=== PATIENT | male | born 1960 | race Caucasian/White ===

== ENCOUNTER 2017-09-02 13:05 | Emergency (ER) | payer OTHER ==
[2017-09-02] MEDS ORDERED: NORMAL SALINE 1000 ML 1,000 ML IV ONE (14:02)
--- NOTE | 2017-09-02 14:04 | ER Document Report ---
ED Medical Screen (RME) - General Chief Complaint: Difficulty Swallowing Stated Complaint: VOMITING Time Seen by Provider: 09/02/17 13:57 Notes: RAPID MEDICAL EVALUATION DISCLOSURE I have seen this patient as part of a Rapid Medical Evaluation and, if applicable, placed any initially appropriate orders. The patient will be seen and fully evaluated, including a full history and physical exam, by a provider ( in Main ED or Fast Track) when a room becomes available. 57-year-old male PMH throat cancer on chemotherapy every Sunday and radiation every Sunday through Sunday here with complaints of severe nausea and excessive mucus at his trach and in his mouth. He does not have any shortness of breath or chest pain or any other symptoms. He has been using Compazine and Zofran for his nausea but is unable to eat or drink anything due to the nausea and feels he may be dehydrated. EXAM Tracheostomy visualized CTAB RRR TRAVEL OUTSIDE OF THE [place] IN LAST 30 DAYS: No - Related Data Allergies/Adverse Reactions: No Known Allergies Allergy (Unverified 09/02/17 13:06) Physical Exam - Vital signs Vitals: Temp Pulse Resp BP Pulse Ox 98.7 F 70 22 H 108/58 L 97 09/02/17 13:11 09/02/17 13:11 09/02/17 13:11 09/02/17 13:11 09/02/17 13:11 Course - Vital Signs Vital signs: Temp Pulse Resp BP Pulse Ox 98.7 F 70 22 H 108/58 L 97 09/02/17 13:11 09/02/17 13:11 09/02/17 13:11 09/02/17 13:11 09/02/17 13:11
[2017-09-02] MEDS ORDERED: NORMAL SALINE 1000 ML 1,000 ML IV PRN (15:12)
[2017-09-02 15:49] LABS: HEMATOCRIT 38.7 % (37.9-51.0); HEMOGLOBIN 13.3 g/dL (13.5-17.0); MEAN CORPUSCULAR HEMOGLOBIN 29.7 pg (27.0-33.4); MEAN CORPUSCULAR HGB CONC 34.3 g/dL (32.0-36.0); MEAN CORPUSCULAR VOLUME 87 fl (80-97); PLATELET COUNT 174 10^3/uL (150-450); RED BLOOD COUNT 4.47 10^6/uL (4.35-5.55); WHITE BLOOD COUNT 5.8 10^3/uL (4.0-10.5)
--- NOTE | 2017-09-02 15:54 | RADIOLOGY REPORT (SQ) ---
EXAM DESCRIPTION: KUB/ABDOMEN (SINGLE VIEW) COMPLETED DATE/TIME: 09/02/2017 3:45 pm REASON FOR STUDY: Abdominal pain COMPARISON: None. NUMBER OF VIEWS: One view. TECHNIQUE: Supine radiographic image of the abdomen acquired. LIMITATIONS: None. FINDINGS: BOWEL GAS PATTERN: Normal bowel gas pattern. No dilated loops. CALCIFICATIONS: No suspicious calcifications. SOFT TISSUES: No gross mass or suggestion of organomegaly. HARDWARE: Gastrostomy tube. BONES: No acute fracture. No worrisome bone lesions. OTHER: No other significant finding. IMPRESSION: NO RADIOGRAPHIC EVIDENCE FOR ACUTE ABDOMINAL DISEASE. TECHNICAL DOCUMENTATION: JOB ID: [id number] [employer]- All Rights Reserved Reading location - IP/workstation name: [email or web address]
[2017-09-02 15:57] LABS: ALANINE AMINOTRANSFERASE 37 U/L (21-72); ALBUMIN 3.9 g/dL (3.5-5.0); ALKALINE PHOSPHATASE 96 U/L (38-126); ANION GAP 11 (5-19); ASPARTATE AMINO TRANSFERASE 24 U/L (17-59); BILIRUBIN,DIRECT 0.2 mg/dL (0.0-0.4); BILIRUBIN,TOTAL 0.3 mg/dL (0.2-1.3); BLOOD UREA NITROGEN 22 mg/dL (7-20); CALCIUM 9.2 mg/dL (8.4-10.2); CARBON DIOXIDE 29 mmol/L (22-30); CHLORIDE 98 mmol/L (98-107); GLUCOSE 113 mg/dL (75-110); PHOSPHORUS 4.4 mg/dL (2.5-4.5); POTASSIUM 4.4 mmol/L (3.6-5.0); SODIUM 138.2 mmol/L (137-145); TOTAL PROTEIN 6.6 g/dL (6.3-8.2)
[2017-09-02 16:13] LABS: ABSOLUTE LYMPHOCYTES# (MANUAL) 0.2 10^3/uL (0.5-4.7); ABSOLUTE MONOCYTES # (MANUAL) 0.3 10^3/uL (0.1-1.4); ABSOLUTE NEUTROPHILS# (MANUAL) 5.2 10^3/uL (1.7-8.2); BASOPHILS % (MANUAL) 0 % (0-2); EOSINOPHILS % (MANUAL) 0 % (0-6); LYMPHOCYTES % (MANUAL) 4 % (13-45); MONOCYTES % (MANUAL) 6 % (3-13); SEGMENTED NEUTROPHILS % (MAN) 90 % (42-78); TOTAL CELLS COUNTED 100
[2017-09-02 16:14] LABS: PLATELET COMMENT ADEQUATE; RBC MORPHOLOGY COMMENT NORMO-CYTIC/CHROMIC
[2017-09-02] MEDS ORDERED: LACTULOSE SYRUP 20 GM/30 ML UDCUP PO ONE (18:40)
--- NOTE | 2017-09-02 18:41 | ER Document Report ---
ED General - General TRAVEL OUTSIDE OF THE [place] IN LAST 30 DAYS: No <JAVI JAFFE - Last Filed: 09/02/17 18:36> <ROBEL BLAKE Soni - Last Filed: 09/02/17 19:35> - General Chief Complaint: Difficulty Swallowing Stated Complaint: VOMITING Time Seen by Provider: 09/02/17 13:57 Notes: Chief complaint: Dehydrated feeling weak History of complain:( obtained from----patient)57-year-old male PMH throat cancer on chemotherapy every Sunday and radiation every Sunday through Sunday here with complaints of severe nausea and excessive mucus at his trach and in his mouth. He does not have any shortness of breath or chest pain or any other symptoms. He has been using Compazine and Zofran for his nausea but is unable to eat or drink anything due to the nausea and feels he may be dehydrated. He has a feeding tube, whenever he feeds himself he feels nauseous. Denies any diarrhea. Denies any fever chills or other constitutional symptoms Onset: Gradual Duration: Continuous Severity: Moderate Quality: Dull Context: Throat cancer, status post chemo and radiation treatment Exacerbating factor and relieving factors: REVIEW OF SYSTEMS: CONSTITUTIONAL : Denies fever, chills, or sweats. Denies recent illness. EENT: As per history of complain g. CARDIOVASCULAR: Denies chest pain. Denies palpitations or racing or irregular heart beat. Denies ankle edema. RESPIRATORY: Denies cough, cold, or chest congestion. Denies shortness of breath, difficulty breathing, or wheezing. GASTROINTESTINAL: Denies distention. Denies nausea, vomiting, or diarrhea. Denies blood in vomitus, stools, or per rectum. Denies black, tarry stools. Denies constipation. GENITOURINARY: Denies difficulty urinating, painful urination, burning, frequency, blood in urine, or discharge. FEMALE GENITOURINARY: Denies vaginal bleeding, heavy or abnormal periods, irregular periods. Denies vaginal discharge or odor. MUSCULOSKELETAL: Denies back or neck pain or stiffness. Denies joint pain or swelling. SKIN: Denies rash, lesions or sores. HEMATOLOGIC : Denies easy bruising or bleeding. LYMPHATIC: Denies swollen, enlarged glands. NEUROLOGICAL: Denies confusion or altered mental status. Denies passing out or loss of consciousness. Denies dizziness or lightheadedness. Denies headache. Denies weakness or paralysis or loss of use of either side. Denies problems with gait or speech. Denies sensory loss, numbness, or tingling. Denies seizures. PSYCHIATRIC: Denies anxiety or stress. Denies depression, suicidal ideation, or homicidal ideation. ALL OTHER SYSTEMS REVIEWED AND NEGATIVE. PHYSICAL EXAMINATION: GENERAL: Well-appearing, well-nourished and in no acute distress. HEAD: Atraumatic, normocephalic. EYES: Pupils equal round and reactive to light, extraocular movements intact, conjunctiva are normal. ENT: Oropharynx-tongue discolored greenish in color. Secretion appears to be normal. No erythema noted.. Moist mucous membranes. NECK: Tracheostomy tube in place LUNGS: Breath sounds clear to auscultation bilaterally and equal. No wheezes rales or rhonchi. HEART: Regular rate and rhythm without murmurs ABDOMEN: Soft, nontender, nondistended abdomen. No guarding, no rebound. No masses appreciated. Examination of genitals-deferred Musculoskeletal: Normal range of motion, no pitting or edema. No cyanosis. NEUROLOGICAL: Cranial nerves grossly intact. Normal speech, normal gait. Normal sensory, motor exams PSYCH: Normal mood, normal affect. SKIN: Warm, Dry, normal turgor, no rashes or lesions noted. Dictation was performed using [employer] voice recognition software (JAVI JAFFE) - [facility] Notes: Dictated (JAVI JAFFE) - Related Data Allergies/Adverse Reactions: No Known Allergies Allergy (Unverified 09/02/17 13:06) Past Medical History - General Information source: Patient - Social History Smoking Status: Unknown if Ever Smoked Chew tobacco use (# tins/day): No Frequency of alcohol use: None Drug Abuse: None Patient has suicidal ideation: No Patient has homicidal ideation: No - Past Medical History Cardiac Medical History: Reports: Hx Hypertension Renal/ Medical History: Denies: Hx Peritoneal Dialysis Past Surgical History: Reports: Hx Abdominal Surgery - gtube <JAVI JAFFE - Last Filed: 09/02/17 18:36> - Social History Family History: None <ROBEL BLAKE - Last Filed: 09/02/17 19:35> - Medical History Notes: Dictated (JAVI JAFFE) Review of Systems <JAVI JAFFE - Last Filed: 09/02/17 18:36> <ROBEL BLAKE - Last Filed: 09/02/17 19:35> - Review of Systems Notes: Dictated (JAVI JAFFE) Physical Exam <JAVI JAFFE - Last Filed: 09/02/17 18:36> <ROBEL BLAKE - Last Filed: 09/02/17 19:35> - Vital signs Vitals: Temp Pulse Resp BP Pulse Ox 98.7 F 70 22 H 108/58 L 97 09/02/17 13:11 09/02/17 13:11 09/02/17 13:11 09/02/17 13:11 09/02/17 13:11 - Notes Notes: Dictated (JAVI JAFFE) Course - Laboratory Result Diagrams: 09/02/17 15:28 09/02/17 15:28 - Diagnostic Test Radiology reviewed: Reports reviewed - Abdominal x-ray reported by radiologist as no acute pathology but has large amount of fecal material <JAVI JAFFE - Last Filed: 09/02/17 18:36> - Laboratory Result Diagrams: 09/02/17 15:28 09/02/17 15:28 <ROBEL BLAKE - Last Filed: 09/02/17 19:35> - Re-evaluation Re-evalutation: 09/02/17 18:40 Given IV normal saline (JAVI JAFFE) 09/02/17 19:34 Pt requesting viscous lidocaine due to his painful swallowing from his throat cancer. Wrote him a prescription. (ROBEL BLAKE) - Vital Signs Vital signs: Temp Pulse Resp BP Pulse Ox 98.7 F 70 22 H 108/58 L 97 09/02/17 13:11 09/02/17 13:11 09/02/17 13:11 09/02/17 13:11 09/02/17 13:11 - Laboratory Laboratory results interpreted by me: 09/02/17 09/02/17 15:28 15:28 Hgb 13.3 L Seg Neuts % (Manual) 90 H Lymphocytes % (Manual) 4 L Abs Lymphs (Manual) 0.2 L BUN 22 H Glucose 113 H Discharge <JAVI JAFFE - Last Filed: 09/02/17 18:36> <ROBEL BLAKE - Last Filed: 09/02/17 19:35> - Discharge Clinical Impression: Dehydration Nausea & vomiting Qualifiers: Vomiting type: unspecified Vomiting Intractability: unspecified Qualified Code( s): R11.2 - Nausea with vomiting, unspecified Retained feces Qualifiers: Constipation type: slow transit constipation Qualified Code(s): K59.01 - Slow transit constipation Condition: Fair Disposition: HOME, SELF-CARE Instructions: Antinausea Medication ([facility]), Dehydration ([facility]) Prescriptions: Lactulose 10 gm PEG BID #120 ml Lidocaine HCl [Lidocaine HCl Viscous] 15 ml MM Q8H PRN #100 ml PRN Reason:
[2017-09-02] MEDS ORDERED: LIDOCAINE 2% VISCOUS SOLN 20 ML UDCUP PO ONE (19:43)
[2017-09-02 20:21] VITALS: BP 148/76
== END 2017-09-02 20:05 | disposition home or self-care (01) ==
LOC: ER 13:05
DX: E86.0 Dehydration (principal); R53.83 Other fatigue; R11.2 Nausea with vomiting, unspecified; K59.01 Slow transit constipation; I10 Essential (primary) hypertension; C14.0 Malignant neoplasm of pharynx, unspecified; Z79.899 Other long term (current) drug therapy
CPT/HCPCS: 99284; 96360; 96361; 36415; 83735; 84100; 85025; 80053; 74018; J3490; J7030

== ENCOUNTER 2017-09-15 18:56 | Emergency (ER) | payer MEDICAID, OTHER ==
[2017-09-15] MEDS ORDERED: NORMAL SALINE 1000 ML 1,000 ML IV ONE (19:47)
--- NOTE | 2017-09-15 19:51 | ER Document Report ---
ED General - General Chief Complaint: Nausea/Vomiting Stated Complaint: VOMITING/DEHYDRATED Time Seen by Provider: 09/15/17 19:42 Mode of Arrival: Ambulatory Information source: Patient Notes: 57-year-old male with a history of stage IV throat cancer presents the emergency department with complaints of dehydration. Patient states that he is currently undergoing chemo and radiation at [facility] [place]. He states that he has a prescription for Zofran but it is not helping. He has been having nausea and vomiting over the last couple of days. Patient feels like he is losing too much fluid. Patient denies any diarrhea, constipation, chest pain, shortness of breath, dysuria, hematuria. Patient does have a G-tube in place. Patient states that he has been giving himself feedings but it has been coming back up. TRAVEL OUTSIDE OF THE [place] IN LAST 30 DAYS: No - HPI Patient complains to provider of: Nausea, vomiting Onset: Last week Onset/Duration: Persistent Quality of pain: No pain Severity: None Pain Level: Denies Associated symptoms: Nausea, Vomiting Exacerbated by: Denies Relieved by: Denies Similar symptoms previously: Yes Recently seen / treated by doctor: No - Related Data Allergies/Adverse Reactions: No Known Allergies Allergy (Verified 09/15/17 18:57) Past Medical History - General Information source: Patient - Social History Smoking Status: Never Smoker Family History: None, Reviewed & Not Pertinent Patient has suicidal ideation: No Patient has homicidal ideation: No - Past Medical History Cardiac Medical History: Reports: Hx Hypertension Renal/ Medical History: Denies: Hx Peritoneal Dialysis Past Surgical History: Reports: Hx Abdominal Surgery - gtube Review of Systems - Review of Systems Constitutional: Weakness. denies: Fever, Malaise EENT: No symptoms reported Cardiovascular: No symptoms reported Respiratory: No symptoms reported Gastrointestinal: Nausea, Vomiting, Poor fluid intake. denies: Abdomen distended, Abdominal pain, Diarrhea, Constipation, Blood in vomit, Black stools , Rectal bleeding Genitourinary: No symptoms reported Male Genitourinary: No symptoms reported Musculoskeletal: No symptoms reported Skin: No symptoms reported Neurological/Psychological: No symptoms reported -: Yes All other systems reviewed and negative Physical Exam - Vital signs Vitals: Temp Resp BP 98.3 F 22 H 116/69 09/15/17 19:01 09/15/17 19:01 09/15/17 19:01 Interpretation: Normal - Notes Notes: PHYSICAL EXAMINATION: GENERAL: Well-appearing, well-nourished and in no acute distress. HEAD: Atraumatic, normocephalic. EYES: Pupils equal round and reactive to light, extraocular movements intact, sclera anicteric, conjunctiva are normal. ENT: Nares patent, oropharynx clear without exudates. Moist mucous membranes. Trach in place. NECK: Normal range of motion, supple without lymphadenopathy LUNGS: Breath sounds clear to auscultation bilaterally and equal. No wheezes rales or rhonchi. HEART: Regular rate and rhythm without murmurs ABDOMEN: Soft, nontender, nondistended abdomen. G-tube in place. No signs of infection. No guarding, no rebound. No masses appreciated. Musculoskeletal: Normal range of motion, no pitting or edema. No cyanosis. NEUROLOGICAL: Cranial nerves grossly intact. Normal speech, normal gait. Normal sensory, motor exams PSYCH: Normal mood, normal affect. SKIN: Warm, Dry, normal turgor, no rashes or lesions noted. Course - Re-evaluation Re-evalutation: 09/15/17 21:38 Labs obtained and are within normal limits. Vitals stable. On re-evaluation, patient continues to deny nausea/vomiting. Says feels fine but is concerned about his recent weight loss. I instructed patient to continue his G-tube feeds as directed, to discuss weight loss with his oncologist on Sunday during his appointment, and to return for fever or worsening symptoms. Patient is agreeable with the plan of care. - Vital Signs Vital signs: Temp Pulse Resp BP Pulse Ox 98.3 F 16 123/65 97 09/15/17 19:01 09/15/17 20:03 09/15/17 20:03 09/15/17 20:03 - Laboratory Result Diagrams: 09/15/17 19:20 09/15/17 19:20 Laboratory results interpreted by me: 09/15/17 09/15/17 19:20 19:20 RBC 4.34 L Hgb 12.8 L Hct 37.2 L Seg Neuts % (Manual) 86 H Band Neutrophils % 1 L Lymphocytes % (Manual) 3 L Abs Lymphs (Manual) 0.1 L Chloride 96 L Glucose 127 H Discharge - Discharge Clinical Impression: Nausea & vomiting Qualifiers: Vomiting type: unspecified Vomiting Intractability: non-intractable Qualified Code(s): R11.2 - Nausea with vomiting, unspecified Condition: Stable Disposition: HOME, SELF-CARE Instructions: Vomiting ([facility])
[2017-09-15 20:35] LABS: ALANINE AMINOTRANSFERASE 35 U/L (21-72); ALBUMIN 3.9 g/dL (3.5-5.0); ALKALINE PHOSPHATASE 78 U/L (38-126); ANION GAP 15 (5-19); ASPARTATE AMINO TRANSFERASE 23 U/L (17-59); BILIRUBIN,DIRECT 0.4 mg/dL (0.0-0.4); BILIRUBIN,TOTAL 0.4 mg/dL (0.2-1.3); BLOOD UREA NITROGEN 20 mg/dL (7-20); CALCIUM 9.4 mg/dL (8.4-10.2); CARBON DIOXIDE 28 mmol/L (22-30); CHLORIDE 96 mmol/L (98-107); GLUCOSE 127 mg/dL (75-110); POTASSIUM 4.5 mmol/L (3.6-5.0); SODIUM 138.8 mmol/L (137-145); TOTAL PROTEIN 6.6 g/dL (6.3-8.2)
[2017-09-15 20:43] LABS: HEMATOCRIT 37.2 % (37.9-51.0); HEMOGLOBIN 12.8 g/dL (13.5-17.0); MEAN CORPUSCULAR HEMOGLOBIN 29.4 pg (27.0-33.4); MEAN CORPUSCULAR HGB CONC 34.4 g/dL (32.0-36.0); MEAN CORPUSCULAR VOLUME 86 fl (80-97); PLATELET COUNT 154 10^3/uL (150-450); RED BLOOD COUNT 4.34 10^6/uL (4.35-5.55); RED CELL DISTRIBUTION WIDTH 11.9 % (11.5-14.0)
[2017-09-15 20:57] LABS: ABSOLUTE LYMPHOCYTES# (MANUAL) 0.1 10^3/uL (0.5-4.7); ABSOLUTE MONOCYTES # (MANUAL) 0.4 10^3/uL (0.1-1.4); ABSOLUTE NEUTROPHILS# (MANUAL) 3.5 10^3/uL (1.7-8.2); BAND NEUTROPHILS % (MANUAL) 1 % (3-5); BASOPHILS % (MANUAL) 0 % (0-2); EOSINOPHILS % (MANUAL) 0 % (0-6); LYMPHOCYTES % (MANUAL) 3 % (13-45); MONOCYTES % (MANUAL) 10 % (3-13); SEGMENTED NEUTROPHILS % (MAN) 86 % (42-78); TOTAL CELLS COUNTED 100
[2017-09-15 20:59] LABS: PLATELET COMMENT ADEQUATE; RBC MORPHOLOGY COMMENT NORMO-CYTIC/CHROMIC
[2017-09-15 22:42] VITALS: BP 133/64
== END 2017-09-15 22:35 | disposition home or self-care (01) ==
LOC: ER 18:56
DX: R11.2 Nausea with vomiting, unspecified (principal); C14.0 Malignant neoplasm of pharynx, unspecified; Z79.899 Other long term (current) drug therapy; I10 Essential (primary) hypertension; R53.1 Weakness; R63.4 Abnormal weight loss; Z68.26 Body mass index [BMI] 26.0-26.9, adult; Z93.1 Gastrostomy status
CPT/HCPCS: 36591; 99284; 96360; 96361; 36415; 83735; 85025; 80053; J7030; J1642